=== PATIENT | female | born 2005 | race Caucasian/White ===

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

== ENCOUNTER 2024-12-22 14:49 | Outpatient (REF) | payer BC, SELFPAY ==
--- NOTE | 2024-12-22 14:30 | PAPFT_PTH ---
PATIENT: LANA ADAME LOC: [facility] U#:[id number] AGE/SX: 19/F ROOM: RE12/22/[address]: Ericka Red NP : 2005 BED: DIS: 12/22/2024 SPEC #: [id number] RECD: 12/22/24 17:43 STATUS: TARAN PLASCENCIA #: [id number] WARREN: 12/22/24 14:[address]: Ericka Red NP DEPT: REPLACED BY [facility] RECD BY: Chasity Rainey ENTERED: 12/22/24 17:44 SP TYPE: PAPFT DENNIS DR: Unknown,Unknown Tissues: 1 - CX/ENDOCX FOR PAP SMEARS Procedures: PAP THIN PREP/[facility] Screening Comments: [id number] (CHLAMYDIA/GC)
[2024-12-23 10:54] LABS: Chlamydia Result Negative (Negative); GC Result Negative (Negative)
== END 2024-12-22 14:50 | disposition home or self-care (01) ==
LOC: LBN 14:49
PROVIDERS: Visit Provider Nurse Practitioner Women's Health
DX: Z12.4 Encounter for screening for malignant neoplasm of cervix (principal)
CPT/HCPCS: 87491; 87591; 88142